=== PATIENT | female | born 1945 | race Caucasian/White ===

== ENCOUNTER → 2016-10-14 | Outpatient (CLI) | payer MEDICARE | LOC: LAB 08:29 | PROVIDERS: Internal Medicine | DX: Z02.89 Encounter for other administrative examinations (principal); D64.9 Anemia, unspecified; E78.5 Hyperlipidemia, unspecified; I10 Essential (primary) hypertension; R73.01 Impaired fasting glucose | CPT/HCPCS: 36415; 80053; 80061; 83036; 84439; 84443 ==

== ENCOUNTER → 2020-11-27 | Outpatient (CLI) | payer MEDICARE, OTHER ==
[~2020-11-27] MED LIST: AMLODIPINE BESYL5 MG PO; CALCIUM500 M1 PO; FISH OIL 500 M1 EAC1 PO; LOSARTAN POTAS100 MG PO; METFORMIN HCL1000 MG PO; PRAVASTATIN SOD40 MG PO; VITAMIN B12-FO1 EACH PO; VITAMIN D-40010 MCG PO
== END ==
LOC: EXRD 13:47
DX: R79.89 Other specified abnormal findings of blood chemistry (principal); N26.1 Atrophy of kidney (terminal)
CPT/HCPCS: 76775

== ENCOUNTER → 2021-04-18 | Outpatient (CLI) | payer MEDICARE, OTHER | LOC: LAB 08:24 | PROVIDERS: Internal Medicine | DX: E11.9 Type 2 diabetes mellitus without complications (principal); E78.5 Hyperlipidemia, unspecified; I10 Essential (primary) hypertension; Z79.899 Other long term (current) drug therapy; E55.9 Vitamin D deficiency, unspecified; E03.9 Hypothyroidism, unspecified | CPT/HCPCS: 36415; 80053; 80061; 83036; 84439; 84443 ==

== ENCOUNTER 2021-04-30 13:11 | Inpatient (IN) | payer MEDICARE, OTHER ==
[~2021-04-30] VITALS: Ht 152.4 cm; Wt 86.7 kg
[2021-04-30 13:57] LABS: HEMOGLOBIN 10.1 gm/dl (12.3-15.3); RED BLOOD COUNT 3.98 M/UL (4.00-5.10); WHITE BLOOD COUNT 5.6 K/UL (4.5-11.0)
[2021-04-30 14:24] LABS: BUN/CREATININE RATIO 12 (0-10)
[2021-05-01 03:37] LABS: HEMOGLOBIN 9.2 gm/dl (12.3-15.3); RED BLOOD COUNT 3.63 M/UL (4.00-5.10)
[2021-05-02 03:30] LABS: HEMOGLOBIN 9.4 gm/dl (12.3-15.3); RED BLOOD COUNT 3.86 M/UL (4.00-5.10); WHITE BLOOD COUNT 2.4 K/UL (4.5-11.0)
--- NOTE | 2021-05-02 22:02 | NUR ---
05/02/21 2100 PATIENT ENCOURAGED TO MOVE TO AVOID DTI
[2021-05-03 04:24] LABS: HEMOGLOBIN 9.6 gm/dl (12.3-15.3); RED BLOOD COUNT 3.86 M/UL (4.00-5.10)
[2021-05-04 04:47] LABS: HEMOGLOBIN 10.1 gm/dl (12.3-15.3); RED BLOOD COUNT 4.12 M/UL (4.00-5.10)
[2021-05-04 04:50] LABS: WHITE BLOOD COUNT 3.8 K/UL (4.5-11.0)
[2021-05-04 05:44] LABS: BUN/CREATININE RATIO 23 (0-10)
[2021-05-05 04:22] LABS: HEMOGLOBIN 10.6 gm/dl (12.3-15.3); RED BLOOD COUNT 4.29 M/UL (4.00-5.10)
[2021-05-05 04:25] LABS: WHITE BLOOD COUNT 5.8 K/UL (4.5-11.0)
[2021-05-06 05:40] LABS: HEMOGLOBIN 10.9 gm/dl (12.3-15.3); RED BLOOD COUNT 4.35 M/UL (4.00-5.10); WHITE BLOOD COUNT 5.7 K/UL (4.5-11.0)
[2021-05-07 04:41] LABS: HEMOGLOBIN 10.6 gm/dl (12.3-15.3); RED BLOOD COUNT 4.29 M/UL (4.00-5.10); WHITE BLOOD COUNT 6.1 K/UL (4.5-11.0)
[2021-05-08 03:28] LABS: HEMOGLOBIN 10.7 gm/dl (12.3-15.3); RED BLOOD COUNT 4.28 M/UL (4.00-5.10); WHITE BLOOD COUNT 6.6 K/UL (4.5-11.0)
--- NOTE | 2021-05-08 14:00 | NUR ---
NO CHANGE FROM PREVIOUS ASSESSMENT, WILL CONTINUE TO MONITOR
--- NOTE | 2021-05-08 19:01 | NUR ---
UPON ENTERING THE ROOM TO ASSESS THE PATIENT, I OVERHEARD HER RAISE HER VOICE FROM OUTSIDE THE DOOR. I ENTERED THE ROOM TO PATIENT PROCLAIMING "I HAVE TO HURT MYSELF" OVER AND OVER AGAIN. THE PATIENT HAD THREE SIDE RAILS UP, AND PROCEEDED TO PULL AND TUG AT HER SIDE RAIL, APPEARING TO ATTEMPT TO HEFT HERSELF OUT OF BED. I ASKED THE PATIENT WHAT SHE MEANT BY "I HAVE TO HURT MYSELF" TO WHICH HER REPLY WAS "I DON'T KNOW" AND "I DON'T UNDERSTAND IT". I ASKED THE PATIENT IF SHE NEEDED TO GET OUT OF BED TO USE THE BATHROOM AND SHE RESPONDED NO. I ASKED IF SHE NEEDED TO MOVE AROUND IN BED AND SHE RESPONDED NO. THE PATIENT CONTINUED TO MOVE AROUND IN BED SLIGHTLY AND EVERY SO OFTEN PULL AT THE SIDE RAILS AGAIN. I VERY PLAINLY ASKED THE PATIENT IF SHE WANTED TO HURT HERSELF, KILL HERSELF, OR , TO WHICH SHE SIMPLY RESPONDED NO EACH TIME. I ASKED HER WHAT WAS WRONG, WHAT MADE HER THINK SHE HAD TO HURT HERSELF, OR IF SOMEONE TOLD HER SHE HAD TO HURT HERSELF SEVERAL TIMES, AND SHE SAID "I DON'T KNOW" AND "I DON'T UNDERSTAND" EACH TIME. I EXPLAINED TO THE PATIENT THAT SHE WAS NOT SUPPOSED TO HURT HERSELF, THAT SHE WAS TO LET US HELP HER, SO SHE COULD GO HOME EVENTUALLY. AGAIN, BEFORE I LEFT THE ROOM TO CALL THE PHYSICIAN, THE PATIENT STATED "I HAVE TO HURT MYSELF". I ASKED HER AGAIN WHY SHE THOUGHT THAT. SHE STATED "I KNOW I HAVE TO". I ASKED HER IF SOMEONE TOLD HER SHE HAD TO AND SHE STATED "YES" THIS TIME. WHEN I INQUIRED WHO SHE RESPONDED "I DONT KNOW". I LEFT THE PATIENT'S ROOM AND MOVED TO THE [place] NEXT TO HER WINDOW TO WATCH HER WHILE I CALLED GENERATOR SWITCHBOARD OPERATOR AND HER ATTENDING MD TO REPORT MY FINDINGS AND MAKE A PLAN. AFTER A 1X1 SITTER WAS ORDERED, THE MIGDALIA DISLA SAT WITH THE PATIENT UNTIL A SITTER COULD ARRIVE TO THE FLOOR. I ENTERED THE PATIENT'S ROOM AGAIN AROUND 1914 AFTER VEIWING THE PATIENT THROUGH THE WINDOW FOR A MOMENT AND SEEING HER HOLDING HER OXYGEN TUBING VERY CLOSE TO HER NECK. I ASKED THE PATIENT WHAT SHE WAS DOING AND SHE RESPONDED WITH "I HAVE TO KILL MYSELF". I ASKED THE PATIENT WHAT SHE MEANT AND SHE THEN STATED "I HAVE TO FIGURE IT OUT". MD REPORTED SHE WOULD COME ASSESS PATIENT ON THE FLOOR. SITTER ATTENDING PATIENT CURRENTLY.
[2021-05-09 07:15] LABS: HEMOGLOBIN 11.3 gm/dl (12.3-15.3); RED BLOOD COUNT 4.52 M/UL (4.00-5.10); WHITE BLOOD COUNT 5.4 K/UL (4.5-11.0)
[2021-05-10 07:28] LABS: HEMOGLOBIN 11.3 gm/dl (12.3-15.3); RED BLOOD COUNT 4.61 M/UL (4.00-5.10); WHITE BLOOD COUNT 5.7 K/UL (4.5-11.0)
--- NOTE | 2021-05-10 16:36 | NUR ---
PT RESPONDED THAT THERE WAS NO FEELINGS OF WANTING TO HURT HER SELF. PT STATED SHE DID MISS HER SISTER. OTHER THAN THAT SHE FELT REALLY GOOD TODAY AND WAS HOPING SHE WOULD BE GOING HOME SOON TO SEE HER SISTER.
[2021-05-11 08:56] LABS: HEMOGLOBIN 12.1 gm/dl (12.3-15.3); RED BLOOD COUNT 4.83 M/UL (4.00-5.10); WHITE BLOOD COUNT 5.1 K/UL (4.5-11.0)
[2021-05-12 03:47] LABS: HEMOGLOBIN 9.9 gm/dl (12.3-15.3); RED BLOOD COUNT 4.04 M/UL (4.00-5.10); WHITE BLOOD COUNT 5.1 K/UL (4.5-11.0)
[2021-05-13 10:05] LABS: HEMOGLOBIN 11.4 gm/dl (12.3-15.3); WHITE BLOOD COUNT 4.8 K/UL (4.5-11.0)
[2021-05-13 10:12] LABS: RED BLOOD COUNT 4.55 M/UL (4.00-5.10)
[2021-05-14 06:39] LABS: HEMOGLOBIN 10.2 gm/dl (12.3-15.3); RED BLOOD COUNT 4.19 M/UL (4.00-5.10); WHITE BLOOD COUNT 3.6 K/UL (4.5-11.0)
--- NOTE | 2021-05-14 10:47 | NUR ---
PT 02 86% ON ROOM AIR
[2021-05-14] MEDS ORDERED: IPRAT-ALBUT 0.5-3 ML NEB (16:44)
[2021-05-14] MEDS ORDERED: HUMIBID LA TAB600 MG PO (16:44)
[2021-05-14] MEDS ORDERED: PROTONIX 40 MG40 M1 PO (16:44)
[2021-05-14] MEDS ORDERED: FERROUS SULFAT325 M2 PO (16:44)
[2021-05-14] MEDS ORDERED: LOPRESSOR 25 MG25 MG PO (16:54)
[2021-05-14] MEDS ORDERED: ELIQUIS2.5 MG PO (16:54)
[2021-05-14] MEDS ORDERED: OMNICEF 300 MG300 MG PO (16:54)
[2021-05-14] MEDS ORDERED: COMBIVENT RESPIM4 GM INH (17:10)
[2021-05-14] MEDS ORDERED: REMERON 15 MG T15 MG PO (18:17)
[2021-05-14] MEDS ORDERED: ASPIRIN EC81 MG PO (18:22)
== END 2021-05-14 18:50 | disposition home or self-care (01) | DRG 177 ==
LOC: ER1 13:11 → CDU 16:12 → PROG CARE 16:12 → CCU 05-02 11:33 → PROG CARE 05-06 15:13
PROVIDERS: Internal Medicine; Nurse Practitioner; ADMIT Internal Medicine
PROC: 8E0ZXY6 Isolation (ICD-10-PCS; 2021-04-30)
PROC: 3E0333Z Introduction of Anti-inflammatory into Peripheral Vein, Percutaneous Approach (ICD-10-PCS; 2021-04-30)
PROC: XW033E5 Introduction of Remdesivir Anti-infective into Peripheral Vein, Percutaneous Approach, New Technology Group 5 (ICD-10-PCS; 2021-04-30)
PROC: XW033H5 Introduction of Tocilizumab into Peripheral Vein, Percutaneous Approach, New Technology Group 5 (ICD-10-PCS; 2021-05-01)
PROC: 5A09457 Assistance with Respiratory Ventilation, 24-96 Consecutive Hours, Continuous Positive Airway Pressure (ICD-10-PCS; 2021-05-02)
PROC: 5A0945A Assistance with Respiratory Ventilation, 24-96 Consecutive Hours, High Flow/Velocity Cannula (ICD-10-PCS; principal; 2021-05-05)
DX: U07.1 COVID-19 (principal); J12.82 Pneumonia due to coronavirus disease 2019; J80 Acute respiratory distress syndrome; G93.41 Metabolic encephalopathy; E43 Unspecified severe protein-calorie malnutrition; N17.9 Acute kidney failure, unspecified; I47.1 Supraventricular tachycardia; R45.851 Suicidal ideations; N30.00 Acute cystitis without hematuria; E86.0 Dehydration; D64.9 Anemia, unspecified; E11.9 Type 2 diabetes mellitus without complications; E66.9 Obesity, unspecified; B96.20 Unspecified Escherichia coli [E. coli] as the cause of diseases classified elsewhere; I25.10 Atherosclerotic heart disease of native coronary artery without angina pectoris; I10 Essential (primary) hypertension; F32.A Depression, unspecified; F41.9 Anxiety disorder, unspecified; D50.9 Iron deficiency anemia, unspecified; E78.5 Hyperlipidemia, unspecified; Z98.890 Other specified postprocedural states; Z79.84 Long term (current) use of oral hypoglycemic drugs; Z79.899 Other long term (current) drug therapy; Z23 Encounter for immunization; Z79.82 Long term (current) use of aspirin; Z68.37 Body mass index [BMI] 37.0-37.9, adult
CPT/HCPCS: ECHO; 36415; 36600; 70450; 71045; 71250; 80048; 80053; 81001; 82550; 82553; 82728; 82803; 82962; 83540; 83550; 83605; 83735; 83874; 83880; 84100; 84439; 84443; 84484; 85025; 85027; 85379; 85610; 85652; 86140; 87040; 87077; 87081; 87086; 87186; 93005; 93306; 94640; 94660; 94664; 94760; 97110; 97110-GP-CQ; 97116; 97116-GP-CQ; 97162; 97166; 97530; 97530-GP-CQ; 97535; 99285; J0360; J0696; J1100; J1650; J2270; J3475; J7030; J7050; Q0249; U0002

== ENCOUNTER → 2021-05-21 | Outpatient (CLI) | payer MEDICARE, OTHER ==
[~2021-05-21] MED LIST changes: +ASPIRIN EC81 MG PO; +COMBIVENT RESPIM4 GM INH; +ELIQUIS2.5 MG PO; +FERROUS SULFAT325 M2 PO; +HUMIBID LA TAB600 MG PO; +IPRAT-ALBUT 0.5-3 ML NEB; +LOPRESSOR 25 MG25 MG PO; +OMNICEF 300 MG300 MG PO; +PROTONIX 40 MG40 M1 PO; +REMERON 15 MG T15 MG PO
== END ==
LOC: LAB 11:56
PROVIDERS: Internal Medicine
DX: U07.1 COVID-19 (principal); J12.9 Viral pneumonia, unspecified
CPT/HCPCS: 36415; 71046; 80048

== ENCOUNTER → 2021-06-12 | Outpatient (CLI) | payer MEDICARE, OTHER | LOC: KOH-I 14:34 | DX: B97.21 SARS-associated coronavirus as the cause of diseases classified elsewhere (principal) | CPT/HCPCS: 71046 ==

== ENCOUNTER → 2021-08-27 | Outpatient (CLI) | payer MEDICARE, OTHER | LOC: EXRD 14:47 | DX: N28.1 Cyst of kidney, acquired (principal); N28.9 Disorder of kidney and ureter, unspecified | CPT/HCPCS: 76775 ==

== ENCOUNTER → 2021-09-17 | Outpatient (CLI) | payer MEDICARE, OTHER | LOC: CT 13:23 | DX: N28.1 Cyst of kidney, acquired (principal) | CPT/HCPCS: 36415; 82565; 84520 ==

== ENCOUNTER → 2021-10-17 | Outpatient (CLI) | payer MEDICARE, OTHER ==
[2021-10-18 10:17] LABS: CREATININE, URINE 585.5 mg/dL (Not Estab.)
== END ==
LOC: LAB 08:13
PROVIDERS: Internal Medicine
DX: E78.5 Hyperlipidemia, unspecified (principal); E55.9 Vitamin D deficiency, unspecified; D64.9 Anemia, unspecified; I10 Essential (primary) hypertension; Z79.899 Other long term (current) drug therapy
CPT/HCPCS: 36415; 80053; 80061; 82043; 82570; 83036; 84439; 84443

== ENCOUNTER → 2021-11-21 | Outpatient (CLI) | payer MEDICARE, OTHER | LOC: CT 10:35 | DX: N28.1 Cyst of kidney, acquired (principal); K76.0 Fatty (change of) liver, not elsewhere classified; K57.30 Diverticulosis of large intestine without perforation or abscess without bleeding; K44.9 Diaphragmatic hernia without obstruction or gangrene | CPT/HCPCS: Q9967 ==